=== PATIENT | male | born 1975 | race Hispanic/Latino ===

== ENCOUNTER → 2025-03-31 | Outpatient (CLI) | payer BC ==
[2025-03-31 22:44] VITALS: PULSE 64; RESP 18
[2025-03-31 23:30] VITALS: PULSE 58; RESP 14
[2025-04-01] VITALS (11 sets, daily range): PULSE 52–62; RESP 16–20
== END | disposition home or self-care (01) ==
LOC: SLP 21:19
PROVIDERS: ATTEND Family Medicine
DX: G47.30 Sleep apnea, unspecified (principal)
CPT/HCPCS: 95810

== ENCOUNTER → 2025-04-05 | Outpatient (CLI) | payer BC ==
[2025-04-05 21:48] VITALS: PULSE 70; RESP 14
[2025-04-05 22:00] VITALS: PULSE 70; RESP 8
[2025-04-05 22:30] VITALS: PULSE 72; RESP 10
[2025-04-05 23:00] VITALS: PULSE 70; RESP 14
[2025-04-05 23:30] VITALS: PULSE 72; RESP 16
[2025-04-06] VITALS (12 sets, daily range): PULSE 56–70; RESP 4–16
== END | disposition home or self-care (01) ==
LOC: SLP 19:44
PROVIDERS: ATTEND Family Medicine
DX: G47.33 Obstructive sleep apnea (adult) (pediatric) (principal); R06.83 Snoring; R09.02 Hypoxemia; R53.83 Other fatigue; R51.9 Headache, unspecified
CPT/HCPCS: 95811